=== PATIENT | male | born 2000 | race Caucasian/White ===

== ENCOUNTER 2023-01-10 13:39 | Emergency (ER) | payer OTHER, SELFPAY ==
[2023-01-10 13:45] VITALS: BP 112/89; PULSE 90; RESP 20; TEMP 37.2; O2SAT 99
--- NOTE | 2023-01-10 14:51 | ED.GENADUL_ITS ---
Discharge Plan Disposition Patient Disposition: Home Discharge Details Clinical Impression: Laceration of hand Primary Care Provider: Unknown,Unknown ED Provider: Chetan Williamson Home Meds and New Rx's Prescriptions: No Action No Known Home Meds Discharge Instructions Instructions: Laceration (ED) Additional Instructions: Watch for any signs of infection and return immediately to the emergency department if these occur. Otherwise keep dressing in place for the next 24-48 hours and then keep wound clean and dry. Return to the emergency department 10 days for suture removal. Medical Decision Making Patient presenting to the emergency department for chief complaint of left hand/base of thumb laceration. Patient states he was whittling some wood and the knife slipped causing an accidental laceration to the palmar aspect at the base of the thumb. Patient denies any other injury or trauma, denies numbness or tingling, denies any weakness or range of motion issues. Physical exam shows a 3 cm laceration to the palmar aspect proximal to the thumb. Two-point discrimination along with movement of the thumb is intact and no other concerning findings are noted. HPI General Mode of arrival: ambulatory . Date/Time Provider Initiated Documentation: 01/10/23 14:40 . Limitations to Documentation: no limitations . Information obtained by: patient and old records reviewed . History of Present Illness 22 year old M presents to the emergency department with the chief complaint of Left hand laceration, described as moderate, Patient started experiencing this hour(s) (1) and it has been constant. No relieving factors improve symptom(s), No exacerbating factors reported . Patient notes no other symptoms.. Patient did receive the following treatments prior to arrival, none Related Data Home Medications Medication Instructions Recorded Confirmed Unknown [No Known Home Meds] 01/10/23 01/10/23 Allergies Allergy/AdvReac Type Severity Reaction Status Date / Time No Known Allergies Allergy Unverified 01/10/23 13:44 General Stated Complaint: Laceration AKHIL: 4 Review of Systems Musculoskeletal Musculoskeletal: Denies limited range of motion, Denies muscle weakness, Denies numbness and Denies tingling Integumentary/Breasts Skin/Breast: Reports as per HPI and Reports wounds Neurologic Neurologic: Denies numbness and Denies tingling PFSH All Active Problems (Updated 01/10/23 @ 15:02 by Chetan Williamson NP) Laceration of hand (Acute) Social History Smoking/Tobacco Use Status: Never Smoking risk assessment performed?: Yes Alcohol Intake: never Substance use type: does not use Exam Const General: cooperative, no acute distress and not ill appearing Orientation: alert, awake and oriented x3 HENMT Mouth: moist mucous membranes Resp Effort & Inspection: normal respiratory effort, able to speak in complete sente nces and no respiratory distress Neuro General: patient alert, patient awake, patient oriented x3, moves all extremities and no focal motor deficits Sensory Exam: no sensory deficits noted Extrem General: normal exam except as noted Left upper extremity: hand Details: laceration palm proximal Details: linear, actively bleeding, involving subcutaneous tissue, with motor nerve function intact and with sensation intact Course Vital Signs Vital signs: Vital Signs Temperature 37.2 C 01/10/23 13:45 Pulse 90 01/10/23 13:45 Respiratory Rate 20 01/10/23 13:45 Blood Pressure 112/89 01/10/23 13:45 Pulse Oximetry 99 01/10/23 13:45 Temperature 37.2 C 01/10/23 13:45 Temperature Source Oral 01/10/23 13:45 Pulse 90 01/10/23 13:45 Respiratory Rate 20 01/10/23 13:45 Respiratory Effort Normal 01/10/23 13:47 Blood Pressure 112/89 01/10/23 13:45 Blood Pressure Position Sitting 01/10/23 13:45 Pulse Oximetry 99 01/10/23 13:45 Oxygen Delivery Method Room Air 01/10/23 13:45 Oxygen Flow Rate 0 01/10/23 13:45 Pain Level 2 01/10/23 13:45 Procedures Laceration Laceration 1: Site: hand Side (If applicable): left Size (cm): 3 Description: linear and clean Depth: simple, single layer Local Anesthetic: Lidocaine 1% and with Epi Amount of anesthesia used (mL): 2 Pre-repair: wound explored, irrigated extensively and deep structures intact Skin layer closed with: other (Prolene) Size (cm): 4-0 Number of sutures: 3 Technique: simple, interrupted
== END 2023-01-10 15:23 | disposition home or self-care (01) ==
PROVIDERS: Emergency Provider Nurse Practitioner Family
DX: M79.642 Pain in left hand (principal); S61.412A Laceration without foreign body of left hand, initial encounter; W26.0XXA Contact with knife, initial encounter